=== PATIENT | female | born 1975 | race Hispanic/Latino ===

== ENCOUNTER 2025-04-29 10:45 | Observation (INO) | payer OTHER ==
[~2025-04-29] VITALS: Ht 160 cm; Wt 89.8 kg
[2025-04-29] VITALS (8 sets, daily range): BP systolic 120–138; BP diastolic 62–84; PULSE 64–72; RESP 18–19; TEMP 98.1–98.3; O2SAT 99–100
[2025-04-29] MEDS ORDERED: SODIUM CHLORIDE FLUSH 10 ML SYR IV PRN (11:00)
[2025-04-29 11:07] LABS: BASOPHILS % 0.6 % (0.0-1.0); EOSINOPHILS % 1.0 % (0.0-6.0); LYMPHOCYTES % 34.3 % (18.0-39.1); MONOCYTES % 7.7 % (4.4-11.3); NEUTROPHILS % 56.1 % (38.7-80.0); RED CELL DISTRIBUTION WIDTH 14.2 % (11.7-14.4)
[2025-04-29] MEDS: SODIUM CHLORIDE 0.9% 1000ML 1,000 ML IV ONE (11:20)
[2025-04-29 11:26] LABS: EST GLOMERULAR FILTRATION RATE 93 ML/MIN (>=60)
[2025-04-29] MEDS ORDERED: ONDANSETRON HCL INJ 2MG/ML 2ML 2 MG/ML VIAL IV PRN ×2 (12:45→14:00)
[2025-04-29] MEDS ORDERED: SODIUM CHLORIDE FLUSH 10 ML SYR INJ PRN (12:45)
[2025-04-29] MEDS ORDERED: DULOXETINE HCL60 MG PO (13:49)
[2025-04-29] MEDS ORDERED: PREGABALIN75 MG PO (13:49)
[2025-04-29] MEDS ORDERED: HYDRALAZINE HCL 20 MG/ML VIAL IV PRN (14:00)
[2025-04-29] MEDS ORDERED: ACETAMINOPHEN 325 MG TAB PO PRN (14:00)
[2025-04-29] MEDS ORDERED: POLYETHYLENE GLYCOL 3350 17 GM PACK PO PRN (14:00)
[2025-04-29 15:08] LABS: CHOL/HDL RATIO 3.4 (3.0-3.6); LDL CHOLESTEROL 126.0 MG/DL (60-130); PHOSPHORUS 3.4 MG/DL (2.3-4.7)
[2025-04-29] MEDS: DOCUSATE SODIUM 100 MG CAP PO SCH (17:00)
[2025-04-29] MEDS: FAMOTIDINE 20 MG TAB PO SCH (17:24)
[2025-04-29] MEDS: ASPIRIN 81 MG CHEW TAB PO ONE (17:24)
== END 2025-04-29 22:45 | disposition home or self-care (01) ==
LOC: ER 10:48 → ERHOLD 12:41 → MED/SURG2 13:43
PROVIDERS: ADMIT Internal Medicine; ATTEND Internal Medicine
DX: R55 Syncope and collapse (principal); R07.9 Chest pain, unspecified; M79.7 Fibromyalgia; D72.829 Elevated white blood cell count, unspecified; Z82.3 Family history of stroke; Z80.49 Family history of malignant neoplasm of other genital organs
CPT/HCPCS: 36415; 71045; 80053; 80061; 82550; 83036; 83735; 83880; 84100; 84439; 84443; 84484; 84702; 85025; 93005; 94760; 99284; G0378; J7030